=== PATIENT | male | born 2000 | race Caucasian/White ===

== ENCOUNTER 2025-01-31 14:31 | Emergency (ER) | payer OTHER, SELFPAY ==
[2025-01-31 14:33] VITALS: BP 145/79; PULSE 79; RESP 18; TEMP 36.4; O2SAT 98
--- NOTE | 2025-01-31 14:46 | ED.GENADUL_ITS ---
Discharge Plan Disposition Patient Disposition: Home Condition: Good Discharge Details Clinical Impression: Upper respiratory infection, Vomiting Primary Care Provider: [facility] Provider: Nette Clancy Home Meds and New Rx's Prescriptions: New ondansetron HCl 4 mg tablet 4 mg PO Q8H PRNQty: 14 0RF Continued simvastatin 20 mg tablet 20 mg PO DAILY Qty: 90 3RF hydroxyzine HCl 25 mg tablet 25 mg PO Q4H PRN Patient Comments: TAKE 1 TABLET BY MOUTH FOUR TIMES DAILY NEEDED FOR ITCHING bupropion HCl 300 mg tablet extended release 24 hr 300 mg PO DAILY Patient Comments: TAKE 1 TABLET BY MOUTH DAILY TAKE 1 150 AND 1 300 MG. TO EQUAL UP 450 MG DAILY bupropion HCl 150 mg tablet extended release 24 hr 150 mg PO DAILY Patient Comments: TAKE 1 TABLET BY MOUTH EVERY 24 HOURS TAKE 1 150 AND 1 300 MG. TO EQUAL UP 450 MG DAILY valacyclovir [Valtrex] 500 mg tablet 500 mg PO DAILY Discharge Instructions Additional Instructions: Tylenol and ibuprofen over the counter for body aches and fever; follow the directions on the bottle. Ondansetron up to every 8 hours as needed for nausea or vomiting. Call your primary care doctor in the morning to schedule an appointment to followup on your visit here. Return to the emergency department for new or worsening symptoms including difficulty breathing, inability to keep down fluids, or if you have any other concerns. Stand Alone Forms: Work Release HPI General Mode of arrival: ambulatory . Date/Time Provider Initiated Documentation: 01/31/25 14:37 . Limitations to Documentation: no limitations . Information obtained by: patient . 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 Started yesterday; last night was awake coughing most of the night. Vomited x 2 today, non bloody nonbilious, unable to tolerate fluids. Has had some stomach cramps but denies abdominal pain. No chest pain or shortness of breath. Does have subjective fever and body aches. Otherwise in his usual state of health with no rash, diarrhea, or other concerns. Related Data Home Medications ?Medication ?Instructions ?Recorded ?Confirmed simvastatin 20 mg tablet 20 mg PO DAILY #90 tabs 04/20/19 01/31/25 bupropion HCl 150 mg 24 hr tablet, 150 mg PO DAILY 01/31/25 01/31/25 extended release bupropion HCl 300 mg 24 hr tablet, 300 mg PO DAILY 01/31/25 01/31/25 extended release hydroxyzine HCl 25 mg tablet 25 mg PO Q4H PRN 01/31/25 01/31/25 ondansetron HCl 4 mg tablet 4 mg PO Q8H PRN #14 tabs 01/31/25 valacyclovir 500 mg tablet 500 mg PO DAILY 01/31/25 01/31/25 (Valtrex) Previous Rx's ?Medication ?Instructions ?Recorded simvastatin 20 mg tablet 20 mg PO DAILY #90 tabs 04/20/19 ondansetron HCl 4 mg tablet 4 mg PO Q8H PRN #14 tabs 01/31/25 Allergies Allergy/AdvReac Type Severity Reaction Status Date / Time Sulfa (Sulfonamide Allergy Intermediate RASH Verified 01/31/25 14:36 Antibiotics) General Stated Complaint: Nausea/Vomit/Diar GISSEL: 3 Review of Systems Narrative: see HPI Exam Narrative Exam Narrative: General: Alert, well appearing, well nourished, in no acute distress. Head: Normocephalic, atraumatic Neck: Trachea midline, ?Neck supple. Cardiac: ?RRR, no murmurs appreciated Resp: No respiratory distress. CTAB. Abd: ?Soft, non-distended, nontender Extremities: ?No deformities.? No peripheral edema. Neurologic: GCS 15. ? Moves all extremities freely against gravity Course Vital Signs Vital signs: Vital Signs Temperature 36.4 C L 01/31/25 14:33 Pulse 79 01/31/25 14:33 Respiratory Rate 18 01/31/25 14:33 Blood Pressure 145/79 H 01/31/25 14:33 Pulse Oximetry 98 01/31/25 14:33 Temperature 36.4 C L 01/31/25 14:33 Temperature Source Oral 01/31/25 14:33 Pulse 79 01/31/25 14:33 Respiratory Rate 18 01/31/25 14:33 Blood Pressure 145/79 H 01/31/25 14:33 Blood Pressure Position Supine 01/31/25 14:33 Pulse Oximetry 98 01/31/25 14:33 Oxygen Delivery Method Room Air 01/31/25 14:33 Oxygen Flow Rate 0 01/31/25 14:33 Pain Level 0 01/31/25 14:33 Medical Decision Making 24yo male with hx HSV, familial hypercholesterolemia, presenting for flu-like symptoms x 2 days; cough, nausea, vomiting, body aches, subjective fevers. Vital signs reassuring on arrival. Well appearing on exam, no respirtaory distress, appears well hydrated. Not suggestive of sepsis, pneumonia, acute/surgical intraabdominal process, acute coronary syndrome, pulmonary embolism; would not get labs or imaging. Most likely viral URI. Will treat with PO zofran and send POC respiratory swab. Swab negative for covid & flu. PO challenged and tolerated well. On reassessment patient remains well appearing with reassuring vital signs. Will discharge home with short course of zofran to followup with PCP. Discharge instructions and return precuations were reviewed with patient who verbalized understanding. All questions were answered and he is in full agreement with the plan. Quality:SDOH Health Related Social Needs: No Data to Display PFSH All Active Problems (Updated 01/31/25 @ 15:44 by Nette Clancy MD) Vomiting (Acute) Upper respiratory infection (Acute) Body mass index (BMI) of 5th to less than 85th percentile for age in patient 18 years to less than 21 years of age (Acute 05/06/17) Familial hypercholesterolemia (Acute 03/11/13) Gynecomastia (Acute 02/26/13) Ingrowing toenail (Acute 02/04/14) Nocturnal enuresis (Acute 01/09/13) Keratosis pilaris (Acute 11/29/15) Routine sports examination for healthy child or adolescent (Acute 01/09/13) Medical History (Updated 01/31/25 @ 15:44 by Nette Clancy MD) Allergy to sulfonamide Hyperlipidemia Vision problem WEARS GLASSES Family History Mother Hyperlipidemia Father No problems noted. GRANDPARENT Diabetes PGM Heart disease MGF Hyperlipidemia MATERNAL RELATIVES Social History (Updated 04/20/19 @ 14:27 by Heather Boswell RN) Smoking/Tobacco Use Status: Current-Occasional Tobacco Type: cigarettes Second Hand Exposure: Yes Smoking risk assessment performed?: Yes Alcohol Intake: never Drug use: Never Substance use type: does not use Household members: family Housing: house Pets and animals: Yes Pets and animals: cat(s) and dog(s)
[2025-01-31] MEDS: Ondansetron O.D.T. 4 MG TABEF PO (15:04)
[2025-01-31 15:41] VITALS: BP 108/60; PULSE 83; RESP 18; TEMP 36.8; O2SAT 98
[2025-01-31] MEDS: Ondansetron O.D.T. 4 MG TABEF, 3 TABS/BTL PO (15:55)
== END 2025-01-31 15:58 | disposition home or self-care (01) ==
PROVIDERS: Emergency Provider Student in an Organized Health Care Education/Training Program
DX: R11.10 Vomiting, unspecified (principal); R05.9 Cough, unspecified; J06.9 Acute upper respiratory infection, unspecified
CPT/HCPCS: 87428; 99283